=== PATIENT | male | born 1985 | race African-American/Black ===

== ENCOUNTER 2024-01-03 16:11 | Emergency (ER) | payer MEDICAID ==
[~2024-01-03] VITALS: Ht 180.3 cm; Wt 91.0 kg
[2024-01-03 16:22] VITALS: TEMP 98.2; O2SAT 98
[2024-01-03] MEDS ORDERED: OFLO5DRO4 LEFT EAR (18:38)
[2024-01-03] MEDS ORDERED: IBUP-2029 MT (18:38)
[2024-01-03 18:52] VITALS: BP 164/89; PULSE 102; RESP 16
== END 2024-01-03 18:54 | disposition home or self-care (01) ==
LOC: ER 16:11
DX: H60.92 Unspecified otitis externa, left ear (principal); J45.909 Unspecified asthma, uncomplicated
CPT/HCPCS: 99283